=== PATIENT | male | born 1945 | race Caucasian/White ===

== ENCOUNTER → 2017-04-26 | Outpatient (CLI) | payer OTHER | LOC: RAD 10:18 | DX: J44.9 Chronic obstructive pulmonary disease, unspecified (principal); R06.00 Dyspnea, unspecified ==

== ENCOUNTER 2018-10-11 13:12 | Emergency (ER) | payer OTHER ==
[~2018-10-11] VITALS: Ht 175.3 cm; Wt 90.7 kg
[2018-10-11 13:55] LABS: ABSOLUTE NEUTROPHILS 4.3 thou/uL (1.4-8.2); BASOPHILS 0.5 % (0.0-2.0); EOSINOPHILS 1.1 % (0.0-3.0); HEMATOCRIT 42.4 % (42.0-52.0); HEMOGLOBIN 14.9 gm/dL (14.0-18.0); LYMPHOCYTES 17.4 % (24.0-44.0); MCH 35.2 pg (26.0-34.0); MCHC 35.1 g/dL (28.0-37.0); MCV 100.4 fL (80.0-100.0); MONOCYTES 8.7 % (1.0-8.0); PLATELET COUNT 166 thou/uL (150-400); POLYS 72.3 % (36.0-66.0); RBC 4.22 mil/uL (4.50-6.00); RDW 13.8 % (10.5-14.5)
[2018-10-11] MEDS ORDERED: AMLODIPINE BESY10 MG PO (13:57)
[2018-10-11] MEDS ORDERED: ASPIRIN81 M2 PO (13:58)
[2018-10-11] MEDS ORDERED: VITAMIN D1000 UNI1 PO (13:59)
[2018-10-11] MEDS ORDERED: ATORVASTATIN CA40 MG PO (13:59)
[2018-10-11] MEDS ORDERED: HYDROCHLOROTH12.5 M1 PO (14:00)
[2018-10-11] MEDS ORDERED: PERFOROMIS20 MCG/2 M IH (14:00)
[2018-10-11] MEDS ORDERED: METFORMIN HCL500 MG PO (14:00)
[2018-10-11] MEDS ORDERED: BYSTOLIC 5 MG5 M1 PO (14:01)
[2018-10-11 14:05] LABS: CALCIUM 10.3 mg/dL (8.5-10.1); CREATININE 1.4 mg/dL (0.7-1.3); POTASSIUM 4.1 mmol/L (3.5-5.1)
[2018-10-11 14:10] LABS: ALBUMIN 4.3 g/dL (3.4-5.0); TOTAL BILIRUBIN 0.6 mg/dL (<0.1-1.0); TOTAL PROTEIN 8.6 g/dL (6.4-8.2)
[2018-10-11] MEDS ORDERED: TESSALON PERLE100 MG PO (15:01)
[2018-10-11] MEDS ORDERED: PREDNISONE 20 M20 MG PO (15:01)
[2018-10-11] MEDS ORDERED: VENTOLIN HFA 1818 GM INH (15:01)
[2018-10-11 16:10] VITALS: BP 148/85
--- NOTE | 2018-10-12 08:14 | EKG ---
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 : 1945 Requested By: Ness De Los Santos Order Number: [id number] MD: Connor Hollins Measurements Intervals [place] Rate: 84 P: 62 DE: 163 QRS: 51 QRSD: 119 T: 50 QT: 374 QTc: 443 Interpretive Statements Sinus rhythm Borderline ST depression, anterolateral leads Compared to ECG 02/15/2003 11:57:06 Sinus tachycardia no longer present Electronically Signed On 10-12-2018 8:14:05 SLEEP TECH by Connor Hollins [email or web address] <ELECTRONICALLY SIGNED> By: Connor Hollins MD, [facility] 10/12/18 0814 1326 25 Connor Hollins MD, FACC /EPI
== END 2018-10-11 16:12 | disposition home or self-care (01) ==
LOC: ER 13:12
PROVIDERS: Physician Assistant
DX: J44.1 Chronic obstructive pulmonary disease with (acute) exacerbation (principal); Z88.8 Allergy status to other drugs, medicaments and biological substances; Z87.01 Personal history of pneumonia (recurrent)

== ENCOUNTER → 2019-10-20 | Outpatient (CLI) | payer OTHER ==
[~2019-10-20] MED LIST: AMLODIPINE BESY10 MG PO; ASPIRIN81 M2 PO; ATORVASTATIN CA40 MG PO; BYSTOLIC 5 MG5 M1 PO; HYDROCHLOROTH12.5 M1 PO; METFORMIN HCL500 MG PO; PERFOROMIS20 MCG/2 M IH; PREDNISONE 20 M20 MG PO; TESSALON PERLE100 MG PO; VENTOLIN HFA 1818 GM INH; VITAMIN D1000 UNI1 PO
== END ==
LOC: SJCVCIMAG 09:16
DX: I11.9 Hypertensive heart disease without heart failure (principal); I36.1 Nonrheumatic tricuspid (valve) insufficiency; I27.20 Pulmonary hypertension, unspecified; R94.31 Abnormal electrocardiogram [ECG] [EKG]; I25.10 Atherosclerotic heart disease of native coronary artery without angina pectoris; E78.00 Pure hypercholesterolemia, unspecified; J44.9 Chronic obstructive pulmonary disease, unspecified; E11.9 Type 2 diabetes mellitus without complications; R93.1 Abnormal findings on diagnostic imaging of heart and coronary circulation; I35.0 Nonrheumatic aortic (valve) stenosis; K21.9 Gastro-esophageal reflux disease without esophagitis; Z79.82 Long term (current) use of aspirin; Z79.84 Long term (current) use of oral hypoglycemic drugs; Z79.899 Other long term (current) drug therapy

== ENCOUNTER → 2020-05-27 | Outpatient (CLI) | payer OTHER | LOC: RAD 15:06 | PROVIDERS: ATTEND Internal Medicine | DX: R91.8 Other nonspecific abnormal finding of lung field (principal) ==

== ENCOUNTER → 2021-05-14 | Outpatient (CLI) | payer OTHER | LOC: SJCVC 11:34 | PROVIDERS: ATTEND Internal Medicine Cardiovascular Disease | DX: I10 Essential (primary) hypertension (principal); E78.00 Pure hypercholesterolemia, unspecified; R93.1 Abnormal findings on diagnostic imaging of heart and coronary circulation; I35.0 Nonrheumatic aortic (valve) stenosis; R06.00 Dyspnea, unspecified; J43.9 Emphysema, unspecified; Z79.82 Long term (current) use of aspirin; Z79.84 Long term (current) use of oral hypoglycemic drugs; Z79.899 Other long term (current) drug therapy; Z87.891 Personal history of nicotine dependence; Z72.89 Other problems related to lifestyle ==

== ENCOUNTER → 2021-06-05 | Outpatient (CLI) | payer OTHER | LOC: SJCVCIMAG 08:07 | PROVIDERS: ATTEND Internal Medicine Cardiovascular Disease | DX: I08.2 Rheumatic disorders of both aortic and tricuspid valves (principal); R00.0 Tachycardia, unspecified; I25.10 Atherosclerotic heart disease of native coronary artery without angina pectoris; I10 Essential (primary) hypertension; E11.9 Type 2 diabetes mellitus without complications; R06.00 Dyspnea, unspecified; R94.31 Abnormal electrocardiogram [ECG] [EKG]; J44.9 Chronic obstructive pulmonary disease, unspecified; E78.5 Hyperlipidemia, unspecified; R53.83 Other fatigue; R11.0 Nausea; Z79.899 Other long term (current) drug therapy; Z88.8 Allergy status to other drugs, medicaments and biological substances ==

== ENCOUNTER → 2021-06-11 | Outpatient (CLI) | payer OTHER ==
[~2021-06-11] VITALS: Ht 175.3 cm; Wt 91.2 kg
[~2021-06-11] MED LIST changes: +FISH OIL 1,001000 M3 PO; +FUROSEMIDE 20 M20 MG PO; +LISINOPRIL10 MG PO; +OMEPRAZOLE 20 M20 M1 PO; +TAMSULOSIN HCL0.4 MG PO; +TOPROL XL50 MG PO
[2021-06-11 08:23] VITALS: BP 139/76
[2021-06-11 08:56] LABS: HEMATOCRIT 37.7 % (42.0-52.0); HEMOGLOBIN 12.9 gm/dL (14.0-18.0); MCH 34.9 pg (26.0-34.0); MCHC 34.2 g/dL (28.0-37.0); MCV 102.2 fL (80.0-100.0); RBC 3.69 mil/uL (4.50-6.00); RDW 15.3 % (10.5-14.5); WBC 4.6 thou/uL (4.0-11.0)
[2021-06-11 09:17] LABS: CALCIUM 10.1 mg/dL (8.5-10.1); CREATININE 2.1 mg/dL (0.7-1.3); POTASSIUM 4.7 mmol/L (3.5-5.1)
--- NOTE | 2021-06-11 15:49 | CATHLAB ---
[facility] [place] [address] INVASIVE PROCEDURE REPORT Name: CLIFFORD PELAEZ Room #: EREN DobbinsRicardo#: [id number] Admission: 06/11/21 Attend Phys: Gavino Simms MD, Discharge: Date of : 47 Report #: [id number] THIS REPORT FOR: cc: Moose Graham MD, Stanley P. MD Mancuso, Gerald M. MD [facility] ~ APPROVED REPORT Study performed: 06/11/2021 10:33:04 Patient Details Patient Status: Out-Patient Room #: The patient is a 75 year-old male Event Personnel Gavino Simms Rf Technician, Michelle López RN RN, Trixie Leo RTR, BOBBIN WINDER TENDER Monitor, Mason Olson RTR Scrub Procedures Performed Art Access - R femoral artery* Left Heart Cath w/or w/o Coronaries [id number] [facility] Renal Bilateral Peripheral Angiography 2316927 CVRENALBIL Hemostasis w/ Mynx 86026 Initial Mod Sed Same Phys/QHP Gr5y 561977 17958 Mod Sed Same Phys/QHP Ea 346290 Indication Dyspnea, Positive stress test Procedure Narrative The Right Groin^ was infiltrated with 1% Lidocaine subcutaneous anesthesia. A PINNACLE 6FR Sheath #[id number] sheath was inserted into the RFA^. Coronary angiography was performed using coronary diagnostic catheters. The right coronary system was accessed and visualized with a JR4 catheter. The left coronary system was accessed and visualized with a JL4 catheter. The left ventricle was accessed and visualized with a PIGTAIL catheter. Left ventricular/Aortic Valve gradient assessed via catheter pullback. Closure device was deployed with a 6 Fr MYNXGRIP 6/7F #[id number]. The patient tolerated the procedure well and there were no complications associated with the procedure. There was no hematoma. Intraoperative Conscious Sedation Sedation start time: 11:03 Case end Time: 11:35 [facility] [place] [address] INVASIVE PROCEDURE REPORT Name: CLIFFORD PELAEZ Room #: [facility]#: [id number] Admission: 06/11/21 Attend Phys: Gavino Simms, Discharge: Date of : 47 Report #: [id number] Fentanyl 50 mcg Versed 1 mg Fluoro Time: 3.37 minutes Dose: DAP 3500.00 cGycm2 327 mGy Contrast Type and Amount: Visipaque 320-25ml Hemodynamics The aortic pressure is 147/78 mmHg with a mean of 109 mmHg. The left ventricular pressure is 154/5 mmHg with a mean of mmHg. The left ventricular end diastolic pressure is 29 mmHg. Conclusion #1 Left heart catheterization reveals mild gradient across aortic valve. No LV gram was performed. Moderate aortic valve stenosis is known. #2 left main mildly disease heavily calcified giving rise to LAD and circumflex. #3 LAD with mild irregularities extends around the apex. No occlusive disease #4 circumflex OM nondominant but moderate distribution with mild irregularity and proximal calcification also noted. #5 large dominant right coronary with moderate mid vessel calcification and 40 to 50% eccentric mid vessel lesions giving rise to a PDA MANFRED which appear relatively well-preserved. #6 bilateral selective renal angiography reveals mild ostial disease bilaterally no evidence of renal artery stenosis. Recommendations and plan: Continue aggressive risk factor modification. There is no indication for coronary intervention. Mild aortic valve stenosis is noted and confirmed noninvasively. <ELECTRONICALLY SIGNED> By: Gavino Simms MD, FACC 06/11/21 1548 1548 1548 Gavino Simms MD, FACC /INF
--- NOTE | 2021-06-12 08:17 | EKG ---
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1945 Requested By: Gavino Simms Order Number: [id number] : Ron Jordan Measurements Intervals [place] Rate: 77 P: 61 VA: 155 QRS: 47 QRSD: 121 T: 32 QT: 388 QTc: 440 Interpretive Statements Sinus rhythm Nonspecific intraventricular conduction delay Compared to ECG 10/11/2018 13:26:54 Intraventricular conduction delay now present ST (T wave) deviation still present Electronically Signed On 06-12-2021 8:16:52 CDT by Ron Jordan [email or web address] <ELECTRONICALLY SIGNED> By: Ron Jordan MD, [facility] 06/12/21 0816 1013 1013 Ron Jordan MD, FACC /EPI
== END | disposition home or self-care (01) ==
LOC: CATH 07:15
PROVIDERS: ATTEND Internal Medicine Cardiovascular Disease
DX: R94.39 Abnormal result of other cardiovascular function study (principal); I25.10 Atherosclerotic heart disease of native coronary artery without angina pectoris; I70.1 Atherosclerosis of renal artery; I35.0 Nonrheumatic aortic (valve) stenosis; R06.00 Dyspnea, unspecified; I10 Essential (primary) hypertension; E78.5 Hyperlipidemia, unspecified; J43.9 Emphysema, unspecified; K21.9 Gastro-esophageal reflux disease without esophagitis; Z98.890 Other specified postprocedural states; Z79.899 Other long term (current) drug therapy; Z91.041 Radiographic dye allergy status; Z91.040 Latex allergy status; Z87.891 Personal history of nicotine dependence

== ENCOUNTER → 2021-09-19 | Outpatient (CLI) | payer MEDICARE | LOC: SJCVCIMAG 08:12 | PROVIDERS: ATTEND Internal Medicine Cardiovascular Disease | DX: N28.1 Cyst of kidney, acquired (principal); I10 Essential (primary) hypertension; K21.9 Gastro-esophageal reflux disease without esophagitis; J43.9 Emphysema, unspecified; E11.9 Type 2 diabetes mellitus without complications; E78.5 Hyperlipidemia, unspecified; I25.10 Atherosclerotic heart disease of native coronary artery without angina pectoris; Z87.891 Personal history of nicotine dependence; Z72.89 Other problems related to lifestyle; Z91.041 Radiographic dye allergy status; Z79.82 Long term (current) use of aspirin; Z79.899 Other long term (current) drug therapy ==